=== PATIENT | female | born 2000 ===

== ENCOUNTER 2025-04-30 09:16 | Inpatient (IN) | payer MEDICAID ==
[2025-04-30 11:50] LABS: MEAN PLATELET VOLUME 8.3 fL (9.4-12.3); NRBC ABSOLUTE 0.00 K/uL (0.00-0.02); NRBC PERCENT 0.0 /100WBC (0.0-0.2); PLATELET COUNT,PLT 209 K/uL (150-400); RED BLOOD CELL COUNT 3.91 M/uL (4.10-5.30); WHITE BLOOD CELL COUNT,WBC 7.56 K/uL (3.9-11.3)
[2025-04-30 12:31] LABS: A/G RATIO 0.7 (0.9-1.6); ALANINE AMINOTRANSFERASE,ALT 24.0 IU/L (14-63); ASPARTATE AMNIOTRANSFERASE,AST 16.0 IU/L (15-37); BILIRUBIN TOTAL 0.4 mg/dL (0.2-1.0); BLOOD UREA NITROGEN,BUN 7.0 mg/dL (7.0-18.0); CARBON DIOXIDE,CO2 23.6 mmol/L (21.0-32.0); CHLORIDE,CL 103.0 mmol/L (98-107); CREATININE 0.7 mg/dL (0.6-1.0); EST CRCL DRUG DOSING (CG) 104.24 mL/min; GLUCOSE RANDOM 107.0 mg/dL (74-106); POTASSIUM,K 3.7 mmol/L (3.5-5.1); PROTEIN TOTAL,TP 6.3 g/dL (6.4-8.2); SODIUM,NA 139.0 mmol/L (136-145)
[2025-04-30 12:32] LABS: ESTIMATED GFR 121.0 mL/min (>60)
[2025-04-30 12:32] LABS: CREATININE,URINE RAND 126.4 mg/dL; PROTEIN CREATININE RATIO,URINE 0.2; PROTEIN,URINE RANDOM 28.1 mg/dL (<11.9)
[2025-04-30] MEDS ORDERED: Water For Irrigation,Sterile 1,000 ML Container IRR PRN (12:47)
[2025-04-30] MEDS ORDERED: Ondansetron 4 MG/2 ML SDV IVPUSH PRN (12:47)
[2025-04-30] MEDS ORDERED: Sodium Chloride 0.9% 10 ML Syringe FLUSH PRN (12:47)
[2025-04-30] MEDS ORDERED: Butorphanol 1 MG/ML SDV IVPUSH PRN (12:47)
[2025-04-30] MEDS ORDERED: Terbutaline 1 MG/ML SDV SUBCUT PRN (12:47)
[2025-04-30] MEDS ORDERED: Misoprostol 25 MCG (1/4 of 100 MCG) Tab VAG PRN (12:47)
[2025-04-30] MEDS ORDERED: Carboprost Tromethamine 250 MCG/1 mL Vial IM PRN (12:47)
[2025-04-30] MEDS ORDERED: Sodium Chloride 0.9% 2.5 ML Syringe FLUSH PRN (12:47)
[2025-04-30] MEDS ORDERED: Oxytocin/0.9 % Sodium Chloride 30 UNIT/500 ML BAG IV SCH (13:00)
[2025-04-30] MEDS: Misoprostol 25 MCG (1/4 of 100 MCG) Tab VAG PRN (13:40)
[2025-04-30] MEDS ORDERED: ePHEDrine 50 MG/ML SDV IVPUSH PRN (15:07)
[2025-04-30] MEDS ORDERED: dexmedeTOMIDine HCl 200 MCG/2 ML SDV EPIDUR SCH (15:15)
[2025-04-30] MEDS ORDERED: Ropivacaine HCl/PF 400 MG in Premix Bag 1 BAG EPIDUR SCH (15:15)
[2025-04-30] MEDS: Misoprostol 50 MCG (1/2 of 100 MCG) Tab VAG SCH (18:28)
[2025-05-01] MEDS: Lactated Ringers 1,000 ML IV SCH (11:41)
[2025-05-01] MEDS: Oxytocin/0.9 % Sodium Chloride 30 UNIT/500 ML BAG IV SCH (11:47)
[2025-05-01] MEDS ORDERED: Benzocaine/Menthol 20%-0.5% Spray 78 GM Cannister TOP PRN (22:17)
[2025-05-01] MEDS ORDERED: Aluminum Hydroxide/Magnesium Hydroxide/Simethicone Susp 30 ML Cup PO PRN (22:17)
[2025-05-01] MEDS ORDERED: Witch Hazel Medicated Pads 40/Jar TOP PRN (22:17)
[2025-05-01] MEDS ORDERED: Lanolin 100% Cream 7 GM Tube TOP PRN (22:17)
[2025-05-01 22:23] LABS: PH,UMBILICAL ARTERIAL 7.35 (7.18-7.38); PH,UMBILICAL VENOUS 7.32 (7.25-7.45)
[2025-05-02 05:32] LABS: BASOPHILS ABSOLUTE AUTO 0.02 K/uL (0.00-0.20); BASOPHILS PERCENT AUTO 0.2 % (0.0-1.0); EOSINOPHILS ABSOLUTE AUTO 0.01 K/uL (0.00-0.45); EOSINOPHILS PERCENT AUTO 0.1 % (0.0-6.0); IMMATURE GRAN ABSOLUTE AUTO 0.08 K/uL (0.00-0.05); IMMATURE GRAN PERCENT AUTO 0.6 % (0.0-0.4); LYMPHOCYTES ABSOLUTE AUTO 1.53 K/uL (1.00-4.80); LYMPHOCYTES PERCENT AUTO 11.5 % (24.0-44.0); MEAN PLATELET VOLUME 8.8 fL (9.4-12.3); MONOCYTES ABSOLUTE AUTO 1.44 K/uL (0.00-0.80); MONOCYTES PERCENT AUTO 10.8 % (0.0-8.0); NEUTROPHILS ABSOLUTE AUTO 10.24 K/uL (1.80-7.70); NEUTROPHILS PERCENT AUTO 76.8 % (41.0-71.0); NRBC ABSOLUTE 0.00 K/uL (0.00-0.02); NRBC PERCENT 0.0 /100WBC (0.0-0.2); PLATELET COUNT,PLT 252 K/uL (150-400); RED BLOOD CELL COUNT 4.06 M/uL (4.10-5.30); WHITE BLOOD CELL COUNT,WBC 13.32 K/uL (3.9-11.3)
== END 2025-05-03 12:09 | disposition home or self-care (01) | DRG 807 ==
LOC: MW.OBCHECK 09:16 → MW.OB 09:18 → MW.OBCHECK 13:17 → MW.OB 13:18 → OBSVTOIN 05-01 21:32 → MW.OB 05-02 03:45
PROVIDERS: ADMIT Obstetrics & Gynecology Obstetrics; ATTEND Obstetrics & Gynecology
PROC: 10E0XZZ Delivery of Products of Conception, External Approach (ICD-10-PCS; principal; 2025-05-01)
PROC: 0HQ9XZZ Repair Perineum Skin, External Approach (ICD-10-PCS; 2025-05-01)
DX: O42.12 Full-term premature rupture of membranes, onset of labor more than 24 hours following rupture (principal); Z37.0 Single live birth; Z3A.39 39 weeks gestation of pregnancy; O70.0 First degree perineal laceration during delivery; Z67.91 Unspecified blood type, Rh negative; Z98.890 Other specified postprocedural states; Z90.49 Acquired absence of other specified parts of digestive tract; Z79.899 Other long term (current) drug therapy
CPT/HCPCS: 36415; 36430; 59025; 59409; 76819; 76819-26; 80053; 82570; 82803; 84112; 84156; 85025; 85027; 85460; 86592; 86850; 86900; 86901; A9270-GY; J2003; J2590; J2791; J7120